=== PATIENT | female | born 2000 | race Hispanic/Latino ===

== ENCOUNTER 2021-06-25 20:18 | Emergency (ER) | payer OTHER, SELFPAY ==
[2021-06-25 20:30] VITALS: BP 128/80; PULSE 72; RESP 16; TEMP 36.8; O2SAT 97; BMI 34.7
--- NOTE | 2021-06-25 20:49 | PC.NURSE ---
pt reports hx of bilateral rash in axilla, she reports hx of same 'a while ago possibly d/t new deodorant or new detergent, she denies pain, but reports irritation
--- NOTE | 2021-06-25 23:46 | ED.SKABFB ---
HPI - Skin/Abscess/Foreign Bdy General Chief complaint: Skin/Abscess/Foreign Body Stated complaint: irritating rash on upper body Time Seen by Provider: 06/25/21 22:26 Source: patient Mode of arrival: Ambulatory Limitations: no limitations History of Present Illness HPI narrative: 20-year-old woman with no significant medical history presents with increasing pain in axilla bilaterally. She notes that they did change detergent as well as deodorants but even with keeping her armpits as dry as possible over the last week she has had increasing tenderness and erythema. She has had this happen before and it did seem to resolve spontaneously. This time with the pain and erythema she is more concerned. There is no abscess, obvious folliculitis or cellulitis. She is having no over riding systemic symptoms without fever, cough, chills, vomiting, diarrhea, abdominal pain. Related Data Previous Rx's Medication Instructions Recorded sulfamethoxazole 800 1 tab PO BID #10 tab 06/25/21 mg-trimethoprim 160 mg tablet (Bactrim DS) Review of Systems Review of Systems Narrative: Remainder of complete review of systems is otherwise unremarkable except for that included in the HPI. Patient History Social History Smoking Status: Never smoker Smoking Status: Never smoker alcohol intake frequency: 0-2 drinks per day Substance Use Type: does not use Exam Initial Vital Signs Initial Vital Signs: Vital Signs Temperature 98.3 F 06/25/21 20:30 Pulse Rate 72 06/25/21 20:30 Respiratory Rate 16 06/25/21 20:30 Blood Pressure 128/80 06/25/21 20:30 Pulse Oximetry 97 06/25/21 20:30 General: Alert appropriate in no acute distress Respiratory: Able to speak in full sentences, no obvious respiratory distress Skin: No obvious rashes, warm and dry Neurologic: Grossly intact no obvious asymmetries or abnormalities Psych: appropriate insight and affect, cooperative Extremity: Bilateral axillary irritation with thickened skin linear dermal clefts, acanthosis nigricans type discoloration to both axilla, no drainage or seeping, erythema in the deeper clefts and no obvious abscess formation. No evidence of hidradenitis supervita. Course Vital Signs Vital signs: Vital Signs - 8 hr 06/25/21 20:30 Temperature 98.3 F Pulse Rate 72 Respiratory Rate 16 Blood Pressure 128/80 Pulse Oximetry 97 MDM - Skin/Abscess/Foreign Bdy MDM Narrative Medical decision making narrative: Otherwise healthy 20-year-old woman presents with bilateral axillary rash. This is not an abscess, not hidradenitis supervita, not obvious folliculitis. I suspect this is a mild allergic reaction that is now becoming superinfected. Suggested that when she dries her armpits uses a hair stretcher and drier to completely dry the area then apply topical antibiotic ointment. There does not appear to be any evidence of fungal involvement. Will have her use this approach for the next 48 hours and if symptoms continue to worsen and she is given a prescription for Septra to take for 5 days if needed. Questions are answered, clearly reviewed developing abscess and reasons to return to the emergency department. She is safe for home discharge Discharge Plan Departure Patient Disposition: Home Clinical Impression: Cellulitis Instructions: DI for Cellulitis -- Adult Activity Restrictions/Additional Instructions: Thank you for coming in today I suspect that you have a superficial bacterial infection that is of affecting both of your armpits, the left greater than the right. Initially I would recommend cleaning the area well, using hair stretcher and drier to complete slightly dry the area and then applying topical antibiotic ointment such as Neosporin a couple of times a day. I would hold off on using any deodorant. If symptoms are not improving with this approach after 48 hours, then I would recommend brief course of antibiotics. I have given you a prescription for Septra that you can fill if the topical antibiotics or ineffective. If you find that symptoms are getting worse or you developing new issues, please return to the ER Prescriptions: New sulfamethoxazole-trimethoprim [Bactrim DS] 800-160 mg tablet 1 tab PO BID Qty: 10 0RF
== END 2021-06-26 00:01 | disposition home or self-care (01) ==
PROVIDERS: Emergency Provider Emergency Medicine
DX: L03.112 Cellulitis of left axilla (principal); L03.111 Cellulitis of right axilla
CPT/HCPCS: 99281